=== PATIENT | female | born 1985 | race African-American/Black ===

== ENCOUNTER 2017-03-14 22:42 | Emergency (ER) | payer SELFPAY ==
[~2017-03-14] VITALS: Ht 165.1 cm; Wt 60.0 kg
[2017-03-14 22:55] VITALS: BP 156/98
== END 2017-03-15 02:30 | disposition left against medical advice (07) ==
LOC: ER 23:34
DX: R10.9 Unspecified abdominal pain (principal); Z53.21 Procedure and treatment not carried out due to patient leaving prior to being seen by health care provider